=== PATIENT | female | born 1995 | race Caucasian/White ===

== ENCOUNTER 2017-05-28 10:42 | Emergency (ER) | payer MEDICAID ==
[2017-05-28 11:04] VITALS: BP 128/70
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
== END 2017-05-28 13:25 | disposition home or self-care (01) ==
LOC: JD.ED 10:42
DX: F32.9 Major depressive disorder, single episode, unspecified (principal); F41.9 Anxiety disorder, unspecified; F17.210 Nicotine dependence, cigarettes, uncomplicated; Z88.8 Allergy status to other drugs, medicaments and biological substances
CPT/HCPCS: 36415; 80053; 80306; 81001; 84443; 84703; 85025; 99284